=== PATIENT | female | born 1995 | race African-American/Black ===

== ENCOUNTER 2022-06-11 12:24 | Emergency (ER) | payer MEDICARE ==
[~2022-06-11] VITALS: Ht 177.8 cm; Wt 91.0 kg
[2022-06-11 12:27] VITALS: BP 119/72
[2022-06-11] MEDS ORDERED: PRED10TA MT (14:00)
[2022-06-11] MEDS ORDERED: HYDR453.3 TP (14:00)
== END 2022-06-11 14:40 | disposition home or self-care (01) ==
LOC: ER 12:24
DX: R21 Rash and other nonspecific skin eruption (principal)
CPT/HCPCS: 99281; 99283